=== PATIENT | male | born 1955 | race Caucasian/White ===

== ENCOUNTER 2022-05-22 14:25 | Emergency (ER) | payer OTHER ==
[2022-05-22 14:45] VITALS: BP 148/86; PULSE 55; RESP 18; TEMP 97.8; BMI 25.1
== END 2022-05-22 15:05 | disposition home or self-care (01) ==
LOC: FER 14:25
DX: L76.32 Postprocedural hematoma of skin and subcutaneous tissue following other procedure (principal)
CPT/HCPCS: 99283-25

== ENCOUNTER 2024-08-23 16:45 | Emergency (ER) | payer OTHER ==
[2024-08-23 17:17] VITALS: BP 161/98; PULSE 91; RESP 20; TEMP 97.3; BMI 24.5
[2024-08-23] MEDS ORDERED: ALBUTEROL SO4 2.5/IPRATROPIUM 0.5 INH SOL 3 ML VIAL.NEB. NEB ONE (17:50)
[2024-08-23] MEDS ORDERED: predniSONE 20 MG TABLET (UD) ONE (17:50)
[2024-08-23 18:11] LABS: HEMATOCRIT 43.7 % (40.1-51.0); HEMOGLOBIN 15.8 g/dL (13.7-17.5); MCHC 36.2 g/dl (32.3-36.5); MEAN CELL VOLUME 85.4 fl (79.0-92.2); MEAN PLT VOLUME 9.7 fl (9.4-12.4); PLATELET COUNT 255 x10^3/uL (163-337); RDW 12.1 % (12.2-16.4)
[2024-08-23] MEDS: ALBUTEROL SO4 2.5/IPRATROPIUM 0.5 INH SOL 3 ML VIAL.NEB. NEB SCH (18:17)
[2024-08-23] MEDS: predniSONE 20 MG TABLET (UD) PO ONE (18:17)
[2024-08-23 18:30] LABS: ALBUMIN 4.9 g/dl (3.4-5.0); BILIRUBIN,TOTAL 1.2 mg/dl (0.2-1); CALCIUM 9.8 mg/dl (8.5-10.1); CREATININE 0.8 mg/dl (0.6-1.3); MAGNESIUM 1.6 mg/dL (1.8-2.4); POTASSIUM 3.6 mmol/L (3.5-5.1); TOT PROT 7.5 g/dl (6.4-8.2)
[2024-08-23 18:32] LABS: INR 1.06 (0.83-1.09); PROTHROMBIN TIME (PATIENT) 11.8 SEC (9.7-13.0)
[2024-08-23 18:34] LABS: ACTIVATED PTT 31.5 SECONDS (25.2-36.5)
== END 2024-08-23 19:25 | disposition home or self-care (01) ==
LOC: FER 16:45
PROC: 3E0F7GC Introduction of Other Therapeutic Substance into Respiratory Tract, Via Natural or Artificial Opening (ICD-10-PCS; principal; 2024-08-23)
DX: R06.02 Shortness of breath (principal); B34.9 Viral infection, unspecified; R05.9 Cough, unspecified
CPT/HCPCS: 0241U-QW; 36415; 71046-TC-FY; 80053; 82550; 82553; 83735; 84484; 85027; 85610; 85730; 93005; 99285-25